=== PATIENT | female | born 1970 | race Caucasian/White ===

== ENCOUNTER → 2016-10-14 | Outpatient (CLI) | payer OTHER ==
[~2016-10-14] MED LIST: ADVAIR 10028 PUFF/IN IN; BYSTOLIC5 MG PO; HYDROCHLOROTHIA1 TA2 PO; LEVAQUIN750 MG PO; MASON NATURAL500 M1 PO; METFORMIN 500M500 M1 PO; MULTIVITAMIN1 SGL PO; PREMARIN 0.9MG0.9 MG PO; PROBIOTIC 15 B1 EACH PO
--- NOTE | 2016-10-20 10:43 | RADIOLOGY REPORT PS360 ---
DIG MAMM-SCREEN [facility] W/CAD CAD Screening ORDERING PHYSICIAN : Carmelita Nielsen APRN PATIENT AGE: 46 years GENDER: Female COMPARISON:. Only one available Previous mammogram July 2015 INDICATION: Routine screening 46-year-old. Takes Premarin. Hysterectomy. No new complaints. Noncontributory family history TECHNIQUE: Standard CC and MLO images were obtained. R2 CAD reviewed. FINDINGS: Dense inhomogeneous breast pattern bilaterally. This may in part reflect Premarin therapy enhancing breast elements.. Overall findings are similar if not slightly more pronounced than on previous exam Mammography of decreased sensitivity in breast of this character.. Self breast examination be encouraged.. Ultrasound is a useful compliment/augment to screening mammography in breast of this increased density character. RIGHT BREAST:. No prominent findings. However there is slight additional density in nodularity superior right breast. Could reflect some cystic areas. There is also area labeled A measuring 9 mm at the deep right breast MLO view.-Fairly stable since 2016.. However I would suggest ultrasound to further survey the entire dense right breast with the patient returns. . LEFT BREAST: Slight additional density at the deep lateral right breast on cc view may merely reflect summation shadow. However given the dense breast tissue here would suggest spot views and ultrasound left breast. (. Noted technologist. The CC spot views would be most useful as this area of slight increased density. Since Is not delineated, not clearly evident on MLO view. Suggest include MLO spot view at the mid & upper left breast to exclude areas 12 cm deep to the nipple IMPRESSION: Fairly dense breast bilaterally in this relatively younger patient, which decreased sensitivity mammography bilateral. Left breast. Area of slight increased density at deep left breast labeled X. Most likely is merely summation shadow but would benefit from spot views & ultrasound left breast Right breast with perhaps subtle additional nodularity superiorly most likely normal tissue although could reflect cyst. Fairly stable 9 mm nodular density labeled A at the deep right breast on MLO view but no significant change. However given bilateral breast density suggest ultrasound survey to include right breast as well when patient returns. (Ultrasound is a useful compliment/ & augment to screening mammography in breast of this fairly dense inhomogeneous character.) BI-RADS CATEGORY: 0_Incomplete: Need additional imaging RECOMMENDED FOLLOWUP: ADD ADDITIONAL IMAGING Bilateral breast ultrasound was spot views area labeled X deep left breast (A letter has been sent to the patient regarding results of the study.)
== END ==
LOC: RAD 08:21
DX: Z12.31 Encounter for screening mammogram for malignant neoplasm of breast (principal)
CPT/HCPCS: G0202

== ENCOUNTER 2017-05-06 19:31 | Emergency (ER) | payer OTHER ==
[~2017-05-06] VITALS: Ht 152.4 cm; Wt 81.6 kg
[2017-05-06] MEDS ORDERED: LISINOPRIL HCTZ1 TAB PO (19:44)
[2017-05-06] MEDS ORDERED: BYSTOLIC5 MG PO (19:44)
[2017-05-06] MEDS ORDERED: METFORMIN1000 MG PO (19:45)
[2017-05-06] MEDS ORDERED: ADVAIR 250/5028 PUFF IN (19:45)
[2017-05-06] MEDS ORDERED: PROVENTIL0.09 MG/A1 IH (19:46)
--- OUTSIDE RECORDS SUMMARY | 2017-05-06 20:34 | External Medical Summary Rpt | CCD ---
Author Author [facility] Organization [facility] Address Unknown Phone Unavailable Purpose Continuity of Care Document - through 2016
[2017-05-06 20:35] LABS: HEMOGLOBIN 13.4 g/dL (12.2-16.2); LYMPH # 1.7 K/mm3 (0.7-4.5); LYMPH % 15.2 % (10-50.0)
--- NOTE | 2017-05-06 20:35 | Emergency Room Report ---
History of Present Illness Time Seen by 1999 Presenting Problem in Triage Pt arrived:Walked Presenting Problem:PRESSURE IN MID CHEST "ESOPHAGUS" RADIATING TO RIGHT SHOULDER /BACK. VOMITING, DIARRHEA. STARTED LAST NIGHT WHILE GOING TO BED. DENIES V/D TODAY STATES FEELS LIKE MUSCLE PAIN. STATES CHEST/THROAT PAIN WORSE WHEN BENDING OVER. 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 Y Clinical Suspician of Infection? N Mental Status: 1 - Regular (Normal Baseline) Sepsis Risk:Low Sepsis Risk Have you (or family members/close friends) recently traveled outside the [place]? N If Yes, where/when: Have you had exposure to infectious disease within the past month? N TB? Other? Specify: Source patient, RN notes reviewed, family, old records Exam Limitations no limitations Comment rt sided upper abd pain with rad to back which started yesterday with nausea Cardiac Chest Pain Chest pain indicative of cardiac No Timing/Duration this evening Severity moderate ALLERGIES Coded Allergies: estrogens, conjugated (From PREMARIN) (Mild, "DOESN'T AGREE WITH MY BODY" ) miconazole (From MONISTAT 7) (Mild, ULCERS IN VAGINA 05/06/17) Home Medications Reported Medications LISINOPRIL/HYDROCHLOROTHIAZIDE (Lisinopril-Hctz 20-25 MG Tab) 1 TAB PO DAILY NEBIVOLOL HCL (Bystolic) 5 MG PO DAILY METFORMIN HCL (Metformin) 1,000 MG PO BID FLUTICASONE/SALMETEROL (Advair 250-50 Diskus) 1 PUFF IN BID ALBUTEROL (Proventil Hfa Inhaler) 1-2 PUFF IH Q4HP PRN ASTHMA History Medical History General CAD? No Angina: No DE: No Hypertension? Yes Hyperlipidemia? Yes CHF? No DVT? No PE? No COPD? No Asthma? Yes Anemia? No GERD? No Gastric ulcers? No GI Bleed? No Hernia? No Thyroid Problems? No Hypothyroidism? No CVA? No Seizures? No Diabetes? Yes Insulin Dependent: No Insulin Pump: No Home FSBS? Yes Renal Insuffiency? No End Stage Renal Disease? No UTI? No Stones? No BPH? No GB Disease: No Nephritic Syndrome? No Asplenia? No Hepatitis? No Sickle Cell Disease? No Arthritis? No Migraines? No Cataracts? No Glaucoma? No MRSA? No HIV? No TB? No Anxiety? No Depression? No Cancer? No More? 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 Respiratory denies cough, denies shortness of breath, denies wheezing Cardiovascular see HPI, chest pain, denies palpitations, denies syncope Gastrointestinal see HPI, abdominal pain, nausea Genitourinary denies: dysuria, frequency, hesitancy, hematuria. Musculoskeletal denies back pain, denies joint pain, denies neck pain Skin denies rash Psychiatric/Neurological denies headache, denies seizure Physical Exam Vital Signs Vital Signs Date Time Temp Pulse Resp B/P Pulse O2 O2 Flow FiO2 Ox Delivery Rate 05/06 2329 90 12 99/37 98 05/06 2318 12 05/06 2200 99.4 81 18 115/74 95 05/06 2029 85 18 121/81 98 05/06 1933 99.5 89 18 155/97 98 - WBC >12,000 or <4,000 or 10% bands? 2 or more SIRS Criteria Met? B/P:/37 MAP:116 Creatinine >2.0? UA output<0.5ml/kg/hr for 2 hrs? Platelet count >100,000? Lactate >2.0mmol/1? INR >1.2 or PTT > than 60 sec? Evidence of Organ Dysfunction? Provider documented clinical suspician of infection? N Sepsis Criteria Count: 0 Sepsis Risk: Low Sepsis Risk General Appearance no apparent distress Eye Exam - bilateral eye PERRL, bilateral eye EOMI Ear, Nose, Throat normal ENT inspection Neck supple Respiratory Status No: respiratory distress. Lung Sounds bilateral: lungs clear. 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 No Results/Orders Laboratory Tests 05/06/172023: Creatine Kinase 127, CK-MB (CK-2) Rel Index 0.6, CK and CKMB Interp 0.7, Troponin I < 0.02 05/06/172023: Sodium 138, Potassium 4.4, Chloride 101, Carbon Dioxide 28, BUN 22 H, Creatinine 0.7, Estimated Creat Clear 132, Estimated GFR (MDRD) 91, Glucose 155 H, Calcium 9.9, Total Bilirubin 0.4, Direct Bilirubin 0.08, Indirect Bilirubin 0.32, AST 16, ALT 26, Alkaline Phosphatase 111, Total Protein 8.6 H, Albumin 3.6, Globulin 5.0 H, Albumin/Globulin Ratio 0.7 L, Amylase 57, Lipase 147, WBC 10.9 H, RBC 4.71, Hgb 13.4, Hct 40.0, MCV 85.0, RDW 12.7, Plt Count 328, MPV 8.3, Gran % 75.6, Gran # 8.3 H, Lymphocytes % 15.2, Monocytes % 4.5, Eosinophils % 4.2, Basophils % 0.4, Lymphocytes # 1.7, Monocytes # 0.5, Eosinophils # 0.5 H, Basophils # 0.1, PUBS MCHC 33.5, MCH 28.5 Current Medication Orders Sig/Khari Start time Last Medication Dose Route Stop Time Status Admin Morphine Sulfate 0 .STK-MED ONE 05/06 2317 DC .ROUTE Ondansetron HCl 0 .STK-MED ONE 05/06 2317 DC .ROUTE Morphine Sulfate 4 MG ONCE ONE 05/06 2315 DC 05/06 IV 05/06 Ondansetron HCl 4 MG ONCE ONE 05/06 2315 DC 05/06 IV 05/06 Sodium Chloride 1,000 ML .Q1H1M 05/06 2215 DC 05/06 IV 05/06 Sodium Chloride 10 ML PRN PRN 05/06 2215 AC IV 05/07 2201 Sodium Chloride 1,000 ML .STK-MED ONE 05/06 2203 DC IV Sodium Chloride 10 ML PRN PRN 05/06 2015 AC IV 05/07 2005 Orders Procedure Date/time Status DIET-NOTHING BY MOUTH 05/[address] SCAN REQ 05/06 2036 Active CARDIAC ENZYMES 05/06 2035 Complete CBC WITH AUTO DIFF 05/06 2015 Complete ELECTROCARDIOGRAM REQUEST 05/06 2005 Active CHEST(2 VIEWS-NOT PORTABLE) 05/06 2005 Active IV SALINE LOCK 05/06 2005 Active LIVER PROFILE 05/06 2005 Complete LIPASE 05/06 2005 Complete CHEM 12 PROFILE 05/06 2005 Complete AMYLASE 05/06 2005 Complete 12 LEAD EKG-NESS (INITIAL) 05/06 UNK Active 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 ST/[facility] chgs XRAY/CT/US XRAY/CT/US 1 CT abdomen, pelvis CT interpretation by discussed w/radiologist Time results known: 0022 CT Results abnormal (see report) XRAY/CT/US 2 XRAY chest XR interpretation by reviewed by me Xray Results normal/NAD Departure Departure Time of Disposition 0026 Disposition DC Home or Self Care(routine) Clinical Impression Primary Impression: Abdominal pain Qualifiers: Abdominal location: right upper quadrant Qualified Code: R10.11 - Right upper quadrant pain Condition STABLE Referrals Richard Brown MD (Family) Patient Instructions DI for Acute Abdomen Additional Instructions call pcp for follow up and recheck if needed Discharge Counseling Counseled pt/family regarding diagnosis, test results, follow up needs ED Critical Care Critical Care No at 0028
--- OUTSIDE RECORDS SUMMARY | 2017-05-06 20:35 | External Medical Summary Rpt | CCD ---
Demographics Preferred Language Sami Marital Status Unknown Nondenominational Affiliation Unknown Race Unknown Ethnic Group Unknown Author Author , [facility] Organization [facility] Address Unknown Phone Immunization Unable to retrieve immunization data due to connection failure with Immunization Registry. Please try again later.
--- OUTSIDE RECORDS SUMMARY | 2017-05-06 20:35 | External Medical Summary Rpt | CCD ---
Demographics Preferred Language Indonesian Marital Status Unknown Sikhism Affiliation Unknown Race Unknown Ethnic Group Unknown Author Author , [facility] Organization [facility] Address Unknown Phone Immunization Unable to retrieve immunization data due to connection failure with Immunization Registry. Please try again later.
[2017-05-06 20:47] LABS: BILIRUBIN, INDIRECT 0.32 mg/dL (0-0.9)
--- NOTE | 2017-05-06 21:43 | RADIOLOGY REPORT PS360 ---
CT ABD PELVIS W/O CONTRAST HISTORY: VOMITING. ABD PAINper order hx. right-sided abdominal pain with vomiting per technologist hx.. ER history actually states abdominal and mid chest pain which radiates to right shoulder Patient Age: 46 years: Female Ordering Physician: Jodi Mariano MD TECHNIQUE: Helical CT scanning performed through the abdomen & pelvis with no oral nor IV contrast utilized COMPARISON :No previous Abdominal studies FINDINGS Lung bases. . Linear basilar atelectasis & scarring at the inferior aspect RML & lingula. Also linear scarring and atelectasis posterior sulcus right lung base. Abdomen pelvis. Lack of oral and IV contrast decreases sensitivity. Liver and Spleen: with no significant findings. Pancreas:. Unremarkable on this noncontrast study.. No biliary duct dilatation. Common duct normal GALLBLADDER. No discrete calcified stones but note vague radio opaque material posterior gallbladder, reflecting sludge & would question vague noncalcified stones.. If biliary/right quadrant symptoms suggest ultrasound... No urinary tract calculi nor obstructive uropathy. Ureters unremarkable .. Renal cysts bilaterally.: LEFT KIDNEY. : 20 mm cyst upper pole left kidney-this extends towards parapelvic region. Immediate posterior this is a slightly hyperdense renal pyramids a or possibly small hemorrhagic cyst. Doubt of significance but follow-up study could confirm stability in this area. If Ultrasound performed this region should be survey should... Midportion left kidney is a benign renal cyst measuring 18 mm diameter.. . 18 mm cyst midportion left kidney also noted ey . RIGHT KIDNEY.. There are 2 renal cyst at upper pole right kidney, with one at lower pole.:.. -35 mm cyst upper pole laterally, bulges downward into the medullary region right kidney.. - 25mm X 18mm cyst medially upper pole. . -Lower pole cyst left kidney measures 4 .3 cm and is large benign-appearing cyst.. There is no hydronephrosis. The right ureter appears normal in caliber.. I would note 3 mm small calcification to believe resides just medial to the course of right ureter on axial image 80.. I favor this is a phlebolith/ venous calcification just medial to the ureter right.Not of significance. GI tract: Stomach unremarkable. Duodenal loop unremarkable. Proximal small bowel unremarkable. Terminal ileum slightly distended with fluid and undigested food measures 29 mm. Of this likely reflects some reflux of food material into the distal ileum or could reflect some mild localized ileus. Small bowel proximal to this point unremarkable. . Appendix is normal. Large bowel: Moderate stool the right colon. Suggestion Scattered small diverticuli throughout the colon but no diverticulitis evident. No bowel dilatation or obstruction PELVIS. Previous hysterectomy. No adnexal masses. No fluid in cul-de-sac. No pelvic or retroperitoneal nor significant mesenteric adenopathy. No free fluid or free air the abdomen or pelvis. Soft tissues.: There is a small nonspecific 11 mm nodule subcutaneous fat left lower back on axial slice 64.. ..Nonspecific. Small calcified inferior to this may towards upper left buttock may reflect injection granuloma. Nonspecific Lumbar spine and osseous structures with no significant findings. IMPRESSION 1. No discrete acute findings abdomen nor pelvis. 2. Gallbladder. No calcified stones ,; However would note vague slight radiodensity material dependent gallbladder- suggesting sludge or possibly noncalcified stones.. 3 Appendix normal. 4. Only note Borderline distended terminal ileum containing undigested food. Appearance may reflect localized ileus or could reflects reflux at ileocecal valve into terminal ileum.. No wall thickening or inflammation here. Remainder small bowel possibly this unremarkable. 5. A few scattered tiny developing diverticuli colon. No diverticulitis. 6. No urinary tract obstruction or calculi. Bilateral renal cyst . 7. Consider Ultrasound Abdomen-to evaluate GB if biliary symptoms. This also will further support benign renal cysts
[2017-05-07 00:55] VITALS: BP 119/76
--- NOTE | 2017-05-07 21:05 | RADIOLOGY REPORT PS360 ---
CHEST(2 VIEWS-NOT PORTABLE) Ordering physician: Jodi Mariano MD Age: 46 years Female INDICATION: chest symptomsCHEST PAIN PROCEDURE: CHEST(2 VIEWS-NOT PORTABLE) FINDINGS: No prior chest studies available Lungs well expanded and clear no significant infiltrate or discrete acute findings. There is minimal linear scarring and atelectasis seen at the left lung base. This was reflection on CT of the abdomen subsequently performed today and with scarring noted at anterior inferior lingula. Question be some subtle scarring and atelectasis at the medial right lung base today CXR but this is equivocal. . No pleural effusion. Heart normal size. Normal pulmonary vascularity. Hilar and mediastinal structures appear satisfactory. Chest wall unremarkable. T-spine intact. IMPRESSION ----- No active disease Nothing definite acute at chest
== END 2017-05-07 00:57 | disposition home or self-care (01) ==
LOC: ER 19:31
PROVIDERS: Emergency Medicine
DX: R10.11 Right upper quadrant pain (principal); J45.909 Unspecified asthma, uncomplicated; I10 Essential (primary) hypertension; E78.5 Hyperlipidemia, unspecified
CPT/HCPCS: J2405

== ENCOUNTER → 2017-05-08 | Outpatient (CLI) | payer OTHER ==
[~2017-05-08] MED LIST changes: +ADVAIR 250/5028 PUFF IN; +LISINOPRIL HCTZ1 TAB PO; +METFORMIN1000 MG PO; +PROVENTIL0.09 MG/A1 IH
--- NOTE | 2017-05-14 23:49 | RADIOLOGY REPORT PS360 ---
DIG MAMM-DX [facility]AR W/CAD Ordering Physician: Richard Brown MD Patient Age: 46 years Female COMPARISON: July 2015 and October 2016 bilateral mammogram studies. Also left mammogram and bilateral breast ultrasound November 02, 2016 INDICATION: Follow-up nodular densities/likely from cyst bilaterally TECHNIQUE: MLO cc view both breast. 90 degree left breast . Additional MLO and lateral view right breast FINDINGS: . inhomogeneous fairly dense breast bilaterally. Scattered moderately dense fibroglandular elements throughout both breasts. Mammography is of somewhat decreased sensitivity in breast of this character. Mild asymmetry. Prior studies are helpful and supportive stability of areas of density bilateral. Right breast.Nodular density at the deep margin right breast most likely intramammary node appears similar to previous studies and can be followed in Left breast: Nodularity question at the deep lateral left breast appear similar or less evident.. Follow-up in one year adequate IMPRESSION: ................................. . Inhomogeneous fairly dense breast. Mammography is decreased sensitivity in breast of this character. No significant interval change. Bilateral follow-up one year recommended BI-RADS CATEGORY: 2_Benign RECOMMENDED FOLLOWUP: 12M 12 MONTH FOLLOW-UP (A letter has been sent to the patient regarding results of the study.)
== END ==
LOC: RAD 12:55
DX: R92.8 Other abnormal and inconclusive findings on diagnostic imaging of breast (principal)
CPT/HCPCS: G0204

== ENCOUNTER 2017-05-20 07:09 | Emergency (ER) | payer OTHER ==
[~2017-05-20] VITALS: Ht 152.4 cm; Wt 81.6 kg
[2017-05-20 07:27] LABS: HEMOGLOBIN 14.5 g/dL (12.2-16.2); LYMPH # 2.3 K/mm3 (0.7-4.5)
--- NOTE | 2017-05-20 07:37 | Emergency Room Report ---
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 N Clinical Suspician of Infection? N Mental Status: 1 - Regular (Normal Baseline) Sepsis Risk:Possible Sepsis Risk Have you (or family members/close friends) recently traveled outside the [place]? N If Yes, where/when: Have you had exposure to infectious disease within the past month? TB? Other? Specify: Source patient, RN notes reviewed, old records Exam Limitations no limitations Comment pt with acute onset of rt upper abd pain with no fever or rash - pt with similiar episode in past Cardiac Chest Pain Chest pain indicative of cardiac No Timing/Duration this evening Severity moderate ALLERGIES Coded Allergies: estrogens, conjugated (From PREMARIN) (Mild, "DOESN'T AGREE WITH MY BODY" ) progesterone (05/22/16) tioconazole (From MONISTAT 1 (TIOCONAZOLE)) (05/22/16) miconazole (From MONISTAT 7) (Mild, ULCERS IN VAGINA 05/08/17) Home Medications Reported Medications LISINOPRIL/HYDROCHLOROTHIAZIDE (Lisinopril-Hctz 20-25 MG Tab) 1 TAB PO DAILY #30 ESTROGENS, CONJUGATED (Premarin 0.9MG. Tablet) 0.9 MG PO QHS #30 NEBIVOLOL HCL (Bystolic) 5 MG PO DAILY #30 Metformin HCl (Metformin) 1,000 MG PO DAILY #120 TAB MULTIVITAMIN (Multivitamins) 1 TABS PO DAILY L. Acidophilus/L. Rhamnosus (Probiotic 15 Billion Cell Cap) 2 EACH PO DAILY CINNAMON BARK (Cinnamon) 500 MG PO DAILY SALMETEROL 50/FLUTICASONE 100 (Advair 100-50 Diskus) 1 PUFFS IN BID LISINOPRIL/HYDROCHLOROTHIAZIDE (Lisinopril-Hctz 20-25 MG Tab) 1 TAB PO DAILY NEBIVOLOL HCL (Bystolic) 5 MG PO DAILY METFORMIN HCL (Metformin) 1,000 MG PO BID FLUTICASONE/SALMETEROL (Advair 250-50 Diskus) 1 PUFF IN BID ALBUTEROL (Proventil Hfa Inhaler) 1-2 PUFF IH Q4HP PRN ASTHMA History Medical History General CAD? No Angina: No [place]: No Hypertension? Yes Hyperlipidemia? Yes CHF? No DVT? No PE? No COPD? No Asthma? Yes Anemia? No GERD? No Gastric ulcers? No GI Bleed? No Hernia? No Thyroid Problems? No Hypothyroidism? No CVA? No Seizures? No Diabetes? Yes Insulin Dependent: No Insulin Pump: No Home FSBS? Yes Renal Insuffiency? No End Stage Renal Disease? No UTI? No Stones? No BPH? No GB Disease: No Nephritic Syndrome? No Asplenia? No Hepatitis? No Sickle Cell Disease? No Arthritis? No Migraines? No Cataracts? No Glaucoma? No MRSA? No HIV? No TB? No Anxiety? No Depression? No Cancer? No More? 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 Respiratory denies cough, denies shortness of breath, denies wheezing Cardiovascular denies chest pain, denies palpitations, denies syncope Gastrointestinal see HPI, abdominal pain, nausea, vomiting Genitourinary denies: dysuria, frequency, hesitancy, hematuria. Musculoskeletal denies back pain, denies joint pain, denies joint swelling, denies neck pain Skin denies rash Psychiatric/Neurological denies headache, denies seizure Physical Exam Vital Signs Vital Signs Date Time Temp Pulse Resp B/P Pulse O2 O2 Flow FiO2 Ox Delivery Rate 05/20 0747 18 05/20 0713 98.2 98 20 166/110 95 - WBC >12,000 or <4,000 or 10% bands? 2 or more SIRS Criteria Met? B/P:166/110 MAP:128 Creatinine >2.0? UA output<0.5ml/kg/hr for 2 hrs? Platelet count >100,000? Lactate >2.0mmol/1? INR >1.2 or PTT > than 60 sec? Evidence of Organ Dysfunction? Provider documented clinical suspician of infection? N Sepsis Criteria Count: 2 Sepsis Risk: Possible Sepsis Risk General Appearance no apparent distress Eye Exam - bilateral eye PERRL, bilateral eye EOMI Ear, Nose, Throat normal ENT inspection Neck supple Respiratory Status No: respiratory distress. 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 No Results/Orders Laboratory Tests 05/20/17 0725: Urine Color YELLOW, Urine Appearance CLOUDY, Urine pH 5.5, Ur Specific [place] > = 1.030, Urine Protein 2+ H, Urine Ketones NEGATIVE, Urine Blood NEGATIVE, Urine Nitrate NEGATIVE, Urine Bilirubin NEGATIVE, Urine Urobilinogen 0.2, Ur Leukocyte Esterase NEGATIVE, Ur Squamous Epith Cells 5-10, Urine Bacteria 1+, Hyaline Casts 3-5, Urine Mucus 1+, Urine Glucose NEGATIVE 05/20/17 0720: Troponin I Pending 05/20/17 0720: Sodium 132 L, Potassium 3.8, Chloride 96 L, Carbon Dioxide 25, BUN 24 H, Creatinine 1.0, Estimated Creat Clear 93, Estimated GFR (MDRD) 60, Glucose 262 H, Calcium 10.4 H, Total Bilirubin 0.2, AST 16, ALT 35, Alkaline Phosphatase 144 H, Total Protein 9.6 H, Albumin 4.0, Globulin 5.6 H, Albumin/Globulin Ratio 0.7 L, Amylase 62, Lipase 192, WBC 10.4, RBC 5.08, Hgb 14.5, Hct 43.2, MCV 85.0, RDW 12.8, Plt Count 374, MPV 8.3, Gran % 68.9, Gran # 7.1, Lymphocytes % 22.0, Monocytes % 4.5, Eosinophils % 3.6, Basophils % 1.0, Lymphocytes # 2.3, Monocytes # 0.5, Eosinophils # 0.4, Basophils # 0.1, PUBS MCHC 33.5, MCH 28.5 Current Medication Orders Sig/Khari Start time Last Medication Dose Route Stop Time Status Admin Hydromorphone HCl 1 MG ONCE ONE 05/20 745 DC 05/20 IV 05/20 746 0747 Ondansetron HCl 4 MG ONCE ONE 05/20 745 DC 05/20 IV 05/20 0746 0746 Ondansetron HCl 0 .STK-MED ONE 05/20 0741 DC .ROUTE Hydromorphone HCl 0 .STK-MED ONE 05/20 0740 DC .ROUTE Sodium Chloride 10 ML PRN PRN 05/20 730 AC IV 05/21 720 Orders Procedure Date/time Status TROPONIN I 05/20 810 Active IV SALINE LOCK 05/20 720 Active URINALYSIS/COMPLETE 05/20 720 Complete LIPASE 05/20 720 Complete CBC WITH AUTO DIFF 05/20 720 Complete CHEM 12 PROFILE 05/20 720 Complete AMYLASE 05/20 720 Complete Departure Departure Time of Disposition 0814 Disposition DC Home or Self Care(routine) Clinical Impression Primary Impression: Abdominal pain Qualifiers: Abdominal location: right upper quadrant Qualified Code: R10.11 - Right upper quadrant pain Condition STABLE Referrals Richard Brown MD (PCP/Family) Patient Instructions DI for Abdominal Pain-Adult Additional Instructions use meds and see surg or pcp for follow up Discharge Counseling Counseled pt/family regarding diagnosis, test results, medications/RX, follow up needs Prescriptions Current Visit Scripts HYDROCODONE/ACETAMINOPHEN ([place] 5-325 Tablet) 1 TAB PO Q6HP PRN pain #10 TAB ED Critical Care Critical Care No at 0816
--- OUTSIDE RECORDS SUMMARY | 2017-05-20 07:42 | External Medical Summary Rpt | CCD ---
Author Author , ALXE Organization [facility] Address Unknown Phone [email or web address] Purpose Continuity of Care Document - 05-06-2017 through 2016 Results Labs Lab Lab Date Result Refere Interp Status Commen Order Detail nces retati t Range on Cardiac enzymes (05-06-2017 20:24) Serum < 0.02 0.00-0. complet or 017 ng/mL 06 ed plasma 20:24 troponi n i.cardi ac measu Serum = 127 26-192 complet or 017 U/L ed plasma 20:24 creatin e kinase measure m Serum = 0.6 0-4.0 complet or 017 U/L ed plasma 20:24 creatin e kinase MB (CK-M Serum = 0.7 0.0-3.6 complet or 017 ng/mL ed plasma 20:24 creatin e kinase MB measu Amylase ser/plas (05-06-2017 20:24) Amylase = 57 25-115 complet 017 U/L ed ser/letty 20:24 s Liver function panel (05-06-2017 20:24) Serum = 0.32 0-0.9 complet or 017 mg/dL ed plasma 20:24 indirec t bilirub in measu Bilirub = 0.08 0.0-0.2 complet in 017 mg/dL ed direct 20:24 Lipase measurement (05-06-2017 20:24) Lipase = 147 73-393 complet measure 017 U/L ed ment 20:24 Comprehensive metabolic panel (05-06-2017 20:24) Protein = 8.6 6.4-8.2 complet total 017 gm/dL ed ser/letty 20:24 s ALT = 26 12-78 complet (SGPT) 017 U/L ed ser/letty 20:24 s Serum = 16 15-37 complet or 017 U/L ed plasma 20:24 asparta te aminotr ansfera Serum = 138 136-145 complet sodium 017 mmoL/L ed measure 20:24 ment Serum = 4.4 3.5-5.1 complet potassi 017 mmoL/L ed um 20:24 measure ment Serum = 155 74-106 complet or 017 mg/dL ed plasma 20:24 glucose measure ment (mas Serum = 5.0 1.3-3.2 complet globuli 017 gm/dL ed n 20:24 measure ment (mass/v olume) Estimat = 91 59- complet ed 017 ML/MIN ed glomeru 20:24 lar filtrat ion rate (GF Comment: REFERENCE RANGE: >60 ML/MIN/1.73 SQUARE METERS Comment: If this patient is -Uzbek, then multiply the Comment: result by 1.210. Estimat = 132 50-200 complet ion of 017 ML/MIN ed creatin 20:24 ine renal clearan ce Serum = 0.7 0.55-1. complet or 017 mg/dL 02 ed plasma 20:24 creatin ine measure ment ( Carbon = 28 21.0-32 complet dioxide 017 mmoL/L .0 ed 20:24 measure ment Serum = 101 98-107 complet or 017 mmoL/L ed plasma 20:24 chlorid e measure ment (mo Serum = 9.9 8.5-10. complet or 017 mg/dL 1 ed plasma 20:24 calcium measure ment (mas Serum = 22 7-18 complet or 017 mg/dL ed plasma 20:24 urea nitroge n measure men Serum = 0.4 0.2-1.0 complet or 017 mg/dL ed plasma 20:24 total bilirub in measure m Serum = 111 46-116 complet or 017 U/L ed plasma 20:24 alkalin e phospha tase milly Serum = 3.6 3.4-5.0 complet or 017 gm/dL ed plasma 20:24 albumin measure ment (mas Serum 11-04-2 = 0.7 1.1-1.8 complet or 017 ed plasma 20:24 albumin /globul in mass ra CBC w auto diff (05-06-2017 20:24) Blood = 10.9 4.8-10. complet leukocy 017 K/MM3 8 ed fausto 20:24 count (number /volume ) Automat = 12.7 11.5-17 complet ed 017 % .5 ed erythro 20:24 cyte distrib ution width Red = 4.71 4.2-5.4 complet blood 017 M/mm3 ed cell 20:24 count Blood = 328 142-424 complet platele 017 K/mm3 ed t count 20:24 Automat = 8.3 7.4-10. complet ed 017 fl 4 ed blood 20:24 platele t mean volume milly Yell % = 4.5 % 1.7-9.3 complet 017 ed 20:24 Absolut = 0.5 0.1-1.0 complet e 017 K/mm3 ed monocyt 20:24 e count Automat = 85.0 82.2-97 complet ed 017 fl .8 ed erythro 20:24 cyte mean corpusc ular v Automat = 33.5 31.8-35 complet ed 017 g/dl .4 ed erythro 20:24 cyte mean corpusc ular h Mean = 28.5 27-31.2 complet corpusc 017 pg ed ular 20:24 hemoglo bin (MCH) determ Lymphoc = 15.2 10-50.0 complet yte 017 % ed count, 20:24 blood, automat ed Absolut = 1.7 0.7-4.5 complet e 017 K/mm3 ed lymphoc 20:24 yte count Blood = 13.4 12.2-16 complet hemoglo 017 g/dL .2 ed bin 20:24 measure ment (mass/v olum Blood = 40.0 37.0-47 complet hematoc 017 % .0 ed rit 20:24 (volume fractio n) Granulo = 75.6 37.0-80 complet cyte 017 % .0 ed percent 20:24 age Blood = 8.3 1.8-7.8 complet granulo 017 K/mm3 ed cytes 20:24 automat ed count (numb Automat = 4.2 % 0.1-12. complet ed 017 0 ed blood 20:24 eosinop hils/10 0 leukocy t Automat = 0.5 0.0-0.4 complet ed 017 K/mm3 ed blood 20:24 eosinop hil count Baso % = 0.4 % 0.1-2.0 complet 017 ed 20:24 Automat = 0.1 0-0.2 complet ed 017 K/MM3 ed blood 20:24 basophi l count (count/ vo
--- OUTSIDE RECORDS SUMMARY | 2017-05-20 07:42 | External Medical Summary Rpt | CCD ---
Author Author , [facility] Organization [facility] Address Unknown Phone [email or web address] Purpose Continuity of Care Document - 05-06-2017 [...] SQUARE METERS Comment: If this patient is -Omani, then multiply the Comment: result by 1.210. [...] blood 20:24 platele t mean volume milly [place] % = 4.5 % 1.7-9.3 complet 017 [...]
--- OUTSIDE RECORDS SUMMARY | 2017-05-20 07:43 | External Medical Summary Rpt | CCD ---
Demographics Preferred Language Italian Marital Status Unknown Jew Affiliation Unknown Race Unknown Ethnic Group Unknown Author Author , [facility]LEX JOHNSON Address Unknown Phone Immunization No patient found.
--- OUTSIDE RECORDS SUMMARY | 2017-05-20 07:43 | External Medical Summary Rpt ---
Author Author [employer], [facility] [employer] Organization [facility] [employer] Address Unknown Phone Unavailable Results CBC W Auto Differential panel in Blood Observa Value Referen Units Interpr Notes Date tion ce etation Range Basophils 0 - 0.2 K/MM3 Normal No May 20 informati 2016 7:20 [#/volume on in AM ] in source Blood by data Automated count Basophils 0.1 - 2.0 % Normal No May 20 /100 informati 2016 7:20 leukocyte on in AM s in source Blood by data Automated count Eosinophi 0.0 - 0.4 K/mm3 Normal No May 20 ls informati 2016 7:20 [#/volume on in AM ] in source Blood by data Automated count Eosinophi 0.1 - % Normal No May 20 ls/100 12.0 informati 2016 7:20 leukocyte on in AM s in source Blood by data Automated count Granulocy 1.8 - 7.8 K/mm3 Normal No May 20 fausto informati 2017 7:20 [#/volume on in AM ] in source Blood by data Automated count Granulocy 37.0 - % Normal No May 20 fausto/100 80.0 informati 2016 7:20 leukocyte on in AM s in source Blood by data Automated count Hematocri 37.0 - % Normal No May 20 t [Volume 47.0 informati 2016 7:20 on in AM Fraction] source of Blood data Hemoglobi 12.2 - g/dL Normal No May 20 n 16.2 informati 2016 7:20 [Mass/vol on in AM ume] in source Blood data Lymphocyt 0.7 - 4.5 K/mm3 Normal No May 20 es informati 2016 7:20 [#/volume on in AM ] in source Unspecifi data ed specimen by Automated count Lymphocyt 10 - 50.0 % Normal No May 20 es informati 2016 7:20 [#/volume on in AM ] in source Unspecifi data ed specimen by Automated count Erythrocy 27 - 31.2 pg Normal No May 20 te mean informati 2016 7:20 corpuscul on in AM ar source hemoglobi data n [Entitic mass] Erythrocy 31.8 - g/dl Normal No May 20 te mean 35.4 informati 2016 7:20 corpuscul on in AM ar source hemoglobi data n concentra tion [Mass/vol ume] by Automated count Erythrocy 82.2 - fl Normal No May 20 te mean 97.8 informati 2016 7:20 corpuscul on in AM ar volume source [Entitic data volume] by Automated count Monocytes 0.1 - 1.0 K/mm3 Normal No May 20 informati 2016 7:20 [#/volume on in AM ] in source Blood by data Automated count Monocytes 1.7 - 9.3 % Normal No May 20 /100 informati 2016 7:20 leukocyte on in AM s in source Blood by data Automated count Platelet 7.4 - fl Normal No May 20 mean 10.4 informati 2016 7:20 volume on in AM [Entitic source volume] data in Blood by Automated count Platelets 142 - 424 K/mm3 Normal No May 20 informati 2016 7:20 [#/volume on in AM ] in source Blood data Erythrocy 4.2 - 5.4 M/mm3 Normal No May 18 fausto informati 2016 7:20 [#/volume on in AM ] in source Amniotic data fluid Erythrocy 11.5 - % Normal No May 20 te 17.5 informati 2016 7:20 distribut on in AM ion width source [Entitic data volume] by Automated count Leukocyte 4.8 - K/MM3 Normal No May 18 s 10.8 informati 2016 7:20 [#/volume on in AM ] in source Blood data Amylase [Enzymatic activity/volume] in Serum or Plasma Observa Value Referen Units Interpr Notes Date tion ce etation Range Amylase 25 - 115 U/L Normal No May 06 [Enzymati informati 2017 8:24 c on in PM activity/ source volume] data in Serum or Plasma Comprehensive metabolic 2000 panel in Serum or Plasma Observa Value Referen Units Interpr Notes Date tion ce etation Range Albumin/G 1.1 - 1.8 No Low No May 4 lobulin informati informati 2016 8:24 [Mass on in on in PM ratio] in source source Serum or data data Plasma Albumin 3.4 - 5.0 gm/dL Normal No May 4 [Mass/vol informati 2017 8:24 ume] in on in PM Serum or source Plasma data Alkaline 46 - 116 U/L Normal No May 06 phosphata informati 2017 8:24 se on in PM [Enzymati source c data activity/ volume] in Serum or Plasma Bilirubin 0.2 - 1.0 mg/dL Normal No May 06 .total informati 2016 8:24 [Mass/vol on in PM ume] in source Serum or data Plasma Urea 7 - 18 mg/dL High No May 06 nitrogen informati 2016 8:24 [Mass/vol on in PM ume] in source Serum or data Plasma Calcium 8.5 - mg/dL Normal No May 06 [Mass/vol 10.1 informati 2016 8:24 ume] in on in PM Serum or source Plasma data Chloride 98 - 107 mmoL/L Normal No May 06 [Moles/vo informati 2016 8:24 lume] in on in PM Serum or source Plasma data Carbon 21.0 - mmoL/L Normal No May 06 dioxide, 32.0 informati 2017 8:24 total on in PM [Moles/vo source lume] in data Serum or Plasma Creatinin 0.55 - mg/dL Normal No May 06 e 1.02 informati 2016 8:24 [Mass/vol on in PM ume] in source Serum or data Plasma Creatinin 50 - 200 ML/MIN Normal No May 06 e renal informati 2016 8:24 clearance on in PM source predicted data by Cockcroft -Gault formula Estimated 59- ML/MIN No REFERENCE May 06 informati RANGE: 2017 8:24 glomerula on in >60 PM r source ML/MIN/1. filtratio data 73 SQUARE n rate METERSIf (GF this patient is -A merican, then multiply theresult by 1.210. Globulin 1.3 - 3.2 gm/dL High No May 06 [Mass/vol informati 2016 8:24 ume] in on in PM Serum source data Glucose 74 - 106 mg/dL High No May 06 [Mass/vol informati 2016 8:24 ume] in on in PM Serum or source Plasma data Potassium 3.5 - 5.1 mmoL/L Normal No May 06 informati 2016 8:24 [Moles/vo on in PM lume] in source Serum or data Plasma Sodium 136 - 145 mmoL/L Normal No May 06 [Moles/vo informati 2016 8:24 lume] in on in PM Serum or source Plasma data Aspartate 15 - 37 U/L Normal No May 06 informati 2016 8:24 aminotran on in PM sferase source [Enzymati data c activity/ volume] in Serum or Plasma Alanine 12 - 78 U/L Normal No May 06 aminotran informati 2016 8:24 sferase on in PM [Enzymati source c data activity/ volume] in Serum or Plasma Protein 6.4 - 8.2 gm/dL High No May 06 [Mass/vol informati 2016 8:24 ume] in on in PM Serum or source Plasma data Lipase [Enzymatic activity/volume] in Serum or Plasma Observa Value Referen Units Interpr Notes Date tion ce etation Range Lipase 73 - 393 U/L Normal No May 06 [Enzymati informati 2016 8:24 c on in PM activity/ source volume] data in Serum or Plasma Hepatic function 2000 panel in Serum or Plasma Observa Value Referen Units Interpr Notes Date tion ce etation Range Bilirubin 0.0 - 0.2 mg/dL Normal No May 06 .direct informati 2016 8:24 [Mass/vol on in PM ume] in source Serum or data Plasma Bilirubin 0 - 0.9 mg/dL Normal No May 06 .indirect informati 2017 8:24 on in PM [Mass/vol source ume] in data Serum or Plasma CBC W Auto Differential panel in Blood Observa Value Referen Units Interpr Notes Date tion ce etation Range Basophils 0 - 0.2 K/MM3 Normal No May 06 inform2016 8:24 [#/volume on in PM ] in source Blood by data Automated count Basophils 0.1 - 2.0 % Normal No May 06 /100 informati 2016 8:24 leukocyte on in PM s in source Blood by data Automated count Eosinophi 0.0 - 0.4 K/mm3 High No May 06 ls informati 2016 8:24 [#/volume on in PM ] in source Blood by data Automated count Eosinophi 0.1 - % Normal No May 06 ls/100 12.0 informati 2016 8:24 leukocyte on in PM s in source Blood by data Automated count Granulocy 1.8 - 7.8 K/mm3 High No May 06 fausto informati 2016 8:24 [#/volume on in PM ] in source Blood by data Automated count Granulocy 37.0 - % Normal No May 06 fausto/100 80.0 informati 2016 8:24 leukocyte on in PM s in source Blood by data Automated count Hematocri 37.0 - % Normal No May 06 t [Volume 47.0 informati 2016 8:24 on in PM Fraction] source of Blood data Hemoglobi 12.2 - g/dL Normal No May 06 n 16.2 informati 2016 8:24 [Mass/vol on in PM ume] in source Blood data Lymphocyt 0.7 - 4.5 K/mm3 Normal No May 06 es informati 2016 8:24 [#/volume on in PM ] in source Unspecifi data ed specimen by Automated count Lymphocyt 10 - 50.0 % Normal No May 06 es informati 2016 8:24 [#/volume on in PM ] in source Unspecifi data ed specimen by Automated count Erythrocy 27 - 31.2 pg Normal No May 06 te mean informati 2016 8:24 corpuscul on in PM ar source hemoglobi data n [Entitic mass] Erythrocy 31.8 - g/dl Normal No May 06 te mean 35.4 informati 2016 8:24 corpuscul on in PM ar source hemoglobi data n concentra tion [Mass/vol ume] by Automated count Erythrocy 82.2 - fl Normal No May 06 te mean 97.8 informati 2016 8:24 corpuscul on in PM ar volume source [Entitic data volume] by Automated count Monocytes 0.1 - 1.0 K/mm3 Normal No May 06 informati 2016 8:24 [#/volume on in PM ] in source Blood by data Automated count Monocytes 1.7 - 9.3 % Normal No May 06 /100 informati 2017 8:24 leukocyte on in PM s in source Blood by data Automated count Platelet 7.4 - fl Normal No May 06 mean 10.4 informati 2016 8:24 volume on in PM [Entitic source volume] data in Blood by Automated count Platelets 142 - 424 K/mm3 Normal No May 06 informati 2016 8:24 [#/volume on in PM ] in source Blood data Erythrocy 4.2 - 5.4 M/mm3 Normal No May 06 fausto informati 2016 8:24 [#/volume on in PM ] in source Amniotic data fluid Erythrocy 11.5 - % Normal No May 06 te 17.5 informati 2017 8:24 distribut on in PM ion width source [Entitic data volume] by Automated count Leukocyte 4.8 - K/MM3 High No Nov 4 s 10.8 informati 2017 8:24 [#/volume on in PM ] in source Blood data
--- OUTSIDE RECORDS SUMMARY | 2017-05-20 07:43 | External Medical Summary Rpt | CCD ---
Demographics Preferred Language Belarusian Marital Status Unknown Rastafari Affiliation Unknown Race Unknown Ethnic Group Unknown Author Author , [facility] JOHNSON Address Unknown Phone Immunization No patient found.
[2017-05-20 07:57] LABS: URINE BILIRUBIN - DIPSTICK NEGATIVE (NEG); URINE BLOOD NEGATIVE (NEG)
[2017-05-20] MEDS ORDERED: NORCO 325 MG-51 TAB PO (08:16)
[2017-05-20 08:33] VITALS: BP 132/85
== END 2017-05-20 08:34 | disposition home or self-care (01) ==
LOC: ER 07:09
PROVIDERS: Emergency Medicine
DX: R10.11 Right upper quadrant pain (principal); I10 Essential (primary) hypertension; J45.909 Unspecified asthma, uncomplicated; E11.9 Type 2 diabetes mellitus without complications
CPT/HCPCS: J2405

== ENCOUNTER → 2017-05-30 | Outpatient (CLI) | payer OTHER ==
[~2017-05-30] MED LIST changes: +NORCO 325 MG-51 TAB PO
[2017-05-30 16:45] LABS: BILIRUBIN, INDIRECT 0.13 mg/dL (0-0.9)
== END ==
LOC: LAB 15:06
PROVIDERS: Surgery
DX: R10.11 Right upper quadrant pain (principal); R10.13 Epigastric pain

== ENCOUNTER → 2017-06-02 | Outpatient (CLI) | payer OTHER ==
--- NOTE | 2017-06-02 10:12 | RADIOLOGY REPORT PS360 ---
US RUQ-(ABD LTD)1ORGAN/QUAD/FU HISTORY: RUQ PAIN, REFLUX, EPIGASTRIC PAIN ORDERING PHYSICIAN: FARAZ CHAVEZ MD PATIENT AGE: 46 years COMPARISON: None FINDINGS: PANCREAS:Unremarkable. No obvious mass or abnormal fluid collection. No ductal dilatation LIVER:No focal liver lesions demonstrated. Homogeneous echogenicity. No intrahepatic biliary ductal dilatation evident RIGHT KIDNEY:There are multiple right renal cysts measuring up to 5 cm in the lower pole. No hydronephrosis. GALLBLADDER:There is a small amount of sludge versus concentrated bile of questionable clinical significance. No gallstones, gallbladder wall thickening, pericholecystic fluid, or biliary dilatation. IMPRESSION: 1. Small amount of gallbladder sludge/concentrated bile. No stones. 2. Right renal cysts
== END ==
LOC: RAD 08:55
DX: R10.11 Right upper quadrant pain (principal); R10.13 Epigastric pain; K21.9 Gastro-esophageal reflux disease without esophagitis

== ENCOUNTER 2017-06-08 10:32 | Day surgery (SDC) | payer OTHER ==
--- NOTE | 2017-06-08 11:30 | Operative Note ---
Surgeon/Diagnoses Surgeon/Mixed Animal Veterinarian(s) Date of procedure: 06/08/17 Surgeon: MD Maria G Chavez Diagnoses Pre-op diagnosis: Epigastric pain RIGHT upper quadrant pain Dysphagia Gastroesophageal reflux Atypical chest pain RIGHT shoulder pain Post-op diagnosis Same as preoperative diagnosis, with the addition of the following: Mild gastritis Procedure Procedure Procedure: Esophagogastroduodenoscopy with biopsy Indications: BRANDON SILVA is a 46 year-old Female with a history of recent emergency department evaluation for complaints of RIGHT shoulder pain, chest pain, nausea, vomiting, diarrhea, reflux, and one episode of dysphagia. Her diarrhea has improved but she continues to have epigastric and RIGHT upper quadrant pain and occasional RIGHT shoulder pain, reflux, and atypical chest pain. She states that "full cardiac workup was negative". Evaluation has showed some sludge within the gallbladder. The decision was made to initially proceed with esophagogastroduodenoscopy. Findings: Mild gastritis Significant/persistent coughing leading to difficulty in visualization. Procedure Description: After informed consent was obtained, the patient was taken to the endoscopy suite. IV sedation ensued after she was transferred to the LEFT lateral decubitus position. The gastroscope was advanced. As the stomach was entered the patient developed significant and persistent coughing that did not thu with therapy. Mild gastritis was noted and an antral biopsy was obtained. Visualization was very limited, taken laterally retroflexion secondary to coughing. The pylorus was intubated and no obvious abnormality was noted in the duodenal bulb. The gastroscope was carefully removed and the patient was transferred to recovery. EBL (ml): 1 Anesthesia: IV sedation with 5 mg of Versed and 100 g of fentanyl Complications: No immediate Specimens: Antral biopsy Disposition Disposition: Stable to recovery from where she will be discharged home. She will follow-up in one week. Consideration of UGI series secondary to history of dysphasia is warranted. Further evaluation and management of possible biliary disease is ongoing. at [id number]
[2017-06-08 14:38] VITALS: BP 128/83
== END 2017-06-08 14:31 | disposition home or self-care (01) ==
LOC: SDC 10:32
PROVIDERS: Surgery
PROC: 0DB78ZX Excision of Stomach, Pylorus, Via Natural or Artificial Opening Endoscopic, Diagnostic (ICD-10-PCS; principal; 2017-06-08 12:00)
DX: K29.70 Gastritis, unspecified, without bleeding (principal); K21.9 Gastro-esophageal reflux disease without esophagitis; R13.10 Dysphagia, unspecified; R10.13 Epigastric pain; R10.11 Right upper quadrant pain

== ENCOUNTER → 2017-06-09 | Outpatient (CLI) | payer OTHER ==
--- NOTE | 2017-06-10 09:53 | RADIOLOGY REPORT PS360 ---
CHEST(2 VIEWS-NOT PORTABLE) INDICATION: Shortness of breath COMPARISON: PA and lateral chest 05/06/2017 FINDINGS: The lung osman are well expanded and appear clear of infiltrate. The cardiomediastinal silhouette and vascularity are normal. The costophrenic angles are clear. The bony thorax is normal. IMPRESSION: Normal chest.
== END ==
LOC: RAD 21:04
DX: R05 Cough (principal); R06.02 Shortness of breath